=== PATIENT | male | born 1985 | race Caucasian/White ===

== ENCOUNTER 2016-09-13 20:48 | Emergency (ER) | payer OTHER ==
[2016-09-13 21:28] LABS: HEMOGLOBIN 15.8 gm/dl (14.0-17.5); RED BLOOD COUNT 5.06 M/UL (4.20-5.50); WHITE BLOOD COUNT 5.4 K/UL (4.5-11.0)
[2016-09-13 21:44] LABS: BUN/CREATININE RATIO 9 (0-10)
== END 2016-09-14 02:10 | disposition short-term general hospital (02) ==
LOC: ER1 20:48
PROVIDERS: Emergency Medicine
DX: R10.84 Generalized abdominal pain (principal); R00.0 Tachycardia, unspecified; S32.019A Unspecified fracture of first lumbar vertebra, initial encounter for closed fracture; S32.029A Unspecified fracture of second lumbar vertebra, initial encounter for closed fracture; R42 Dizziness and giddiness; R06.02 Shortness of breath; V89.2XXA Person injured in unspecified motor-vehicle accident, traffic, initial encounter; Y92.410 Unspecified street and highway as the place of occurrence of the external cause; Z79.01 Long term (current) use of anticoagulants; Z79.899 Other long term (current) drug therapy
CPT/HCPCS: 36415; 71010; 80053; 81001; 83690; 85025; 85610; 85730; 86850; 86900; 86901; 87086; 93005; 96374; 96375; 96376; 99285; J2270; J2405; J7030; J7050; Q9963